=== PATIENT | male | born 1960 | race Caucasian/White ===

== ENCOUNTER 2022-05-15 09:00 | Emergency (ER) | payer OTHER ==
[2022-05-15 10:07] LABS: ESTIMATED GFR 63 mL/min (>60)
[2022-05-15] MEDS ORDERED: Sodium Chloride 0.9% 1,000 ML IV ONE ×3 (10:27→14:04)
[2022-05-15] MEDS ORDERED: Saccharomyces Boulardii (Probiotic) 250 MG Cap PO SCH (10:30)
[2022-05-15] MEDS ORDERED: Piperacillin/Tazobactam 4.5 GM in Sodium Chloride 0.9% 100 ML IV SCH (10:30)
[2022-05-15 10:59] LABS: CORONAVIRUS COVID-19 NAA NEGATIVE (NEGATIVE)
[2022-05-15] MEDS ORDERED: Magnesium Sulfate/Water 2 GM in Premix Bag 1 BAG IV ONE (11:10)
[2022-05-15] MEDS ORDERED: VANCOmycin 2 GM/400 ML 2 GM in Premix Bag 1 BAG IV ONE (11:30)
[2022-05-15] MEDS ORDERED: Ondansetron 4 MG/2 ML SDV IVPUSH ONE (11:54)
[2022-05-15] MEDS ORDERED: Iopamidol 755 Mg/ML 100 ML Bottle IV ONE (12:33)
[2022-05-15] MEDS ORDERED: Sodium Chloride 0.9% 1,000 ML IV SCH (15:45)
== END 2022-05-15 15:45 ==
LOC: FB.ED 09:00
DX: A41.9 Sepsis, unspecified organism (principal); R65.20 Severe sepsis without septic shock; E66.2 Morbid (severe) obesity with alveolar hypoventilation; I10 Essential (primary) hypertension; F19.10 Other psychoactive substance abuse, uncomplicated; Z91.048 Other nonmedicinal substance allergy status; Z88.8 Allergy status to other drugs, medicaments and biological substances; Z20.822 Contact with and (suspected) exposure to COVID-19; Z68.41 Body mass index [BMI] 40.0-44.9, adult; Z90.49 Acquired absence of other specified parts of digestive tract
CPT/HCPCS: 0241U; 36415; 71046; 74177; 80053; 81001; 83605; 83735; 83880; 84484; 85025; 86140; 87040; 93005; 96361; 96365; 96366; 96367; 96368; 96375; 99285-25; J2405; J2543; J3370; J3475; J7030; Q9967